=== PATIENT | female | born 1980 | race Caucasian/White ===

== ENCOUNTER 2023-01-26 23:36 | Emergency (ER) | payer OTHER ==
[~2023-01-26] VITALS: Ht 165.1 cm; Wt 81.6 kg
[2023-01-26 23:44] VITALS: BP_SYST 130; PULSE 114; RESP 26; TEMP 97.3; O2SAT 98
[2023-01-27] MEDS ORDERED: LORazepam 2 MG/ML VIAL IM ONE (00:15)
[2023-01-27] MEDS ORDERED: HALOPERIDOL LACTATE 5 MG/ML VIAL IM ONE (00:45)
[2023-01-27] MEDS ORDERED: DIPHENHYDRAMINE INJ 50 MG/ML VIAL IM ONE (01:15)
[2023-01-27 06:07] LABS: BILIRUBIN,URINE NEGATIVE (NEGATIVE); CLARITY/URINE CLEAR (CLEAR); COLOR,URINE YELLOW (YELLOW); GLUCOSE,URINE NEGATIVE (NEGATIVE); KETONES,URINE NEGATIVE (NEGATIVE); LEUKOCYTE ESTERASE ,URINE TRACE (NEGATIVE); NITRITE, URINE NEGATIVE (NEGATIVE); PH,URINE 6.5 (5.0-8.0); PROTEIN URINE NEGATIVE (NEGATIVE); UROBILINOGEN,URINE 0.2 (0.2-1.0)
[2023-01-27 06:12] LABS: BLOOD, URINE TRACE (NEGATIVE)
[2023-01-27 06:32] LABS: CANNABINOID, URINE POSITIVE (NEG <=50)
[2023-01-27 06:33] LABS: BARBITURATE, URINE NEGATIVE (NEG <=200); BENZODIAZEPINE, URINE NEGATIVE (NEG <=150); COCAINE, URINE NEGATIVE (NEG <=150); METHAMPHETAMINES SCREEN,URINE NEGATIVE (NEG <=500); URINE AMPHETAMINE NEGATIVE (NEG <=500); URINE METHADONE NEGATIVE (NEG <=200)
[2023-01-27 06:34] LABS: OPIATE, URINE NEGATIVE (NEG <=100); PHENCYCLIDINE SCREEN,URINE NEGATIVE (NEG <=25); UR TRICYCLIC ANTIDEPRESSANTS NEGATIVE (NEG <=300); URINE OXYCODONE SCREEN NEGATIVE (NEG <=100); URINE PROPOXYPHENE SCREEN NEGATIVE (NEG <=300)
[2023-01-27 06:34] LABS: BASOPHILS % (AUTO) 0.5 % (0.0-2.0); EOSINOPHILS % (AUTO) 0.4 % (0.0-4.0); HEMATOCRIT 33.9 % (36-48); LYMPHOCYTES % (AUTO) 22.8 % (20.5-51.5); MEAN CORPUSCULAR HEMOGLOBIN 29 pg (27-31); MEAN CORPUSCULAR HGB CONC 32 % (32-36); MEAN CORPUSCULAR VOLUME 90 fL (79.0-98.0); MONOCYTES # (AUTO) 0.8 K/uL (0.0-1.0); MONOCYTES % (AUTO) 9.7 % (1.7-9.3); NEUTROPHILS # (AUTO) 5.7 K/uL (1.8-7.7); NEUTROPHILS % (AUTO) 66.6 % (40.0-70.0); PLATELET COUNT (AUTO) 221 K/uL (130-430); RED BLOOD CELL COUNT(AUTO) 3.75 MIL/uL (4.2-6.2); RED CELL DISTRIBUTION WIDTH 13.3 % (9.0-15.0); WHITE BLOOD COUNT (AUTO) 8.6 K/uL (4.8-10.8)
[2023-01-27 06:47] LABS: BACTERIA,URINE FEW /HPF (None Seen)
[2023-01-27 06:56] LABS: ALANINE AMINOTRANSFERASE 27 U/L (12-78); ALBUMIN 3.6 g/dL (3.4-4.8); ANION GAP 9 (5-15); ASPARTATE AMINOTRANSFERASE 18 U/L (10-37); CALCIUM 8.4 mg/dL (8.4-11.0); CHLORIDE 108 mmol/L (98-107); CREATININE 0.76 mg/dL (0.55-1.30); GFR AFRICAN AMERICAN 106 mL/min (>90); GLUCOSE 94 mg/dL (74-106); TOTAL BILIRUBIN 0.4 mg/dL (0.0-1.0); UREA NITROGEN, BLOOD 7 mg/dL (8-21)
[2023-01-27 07:02] LABS: ACETAMINOPHEN < 1 ug/mL (1-30)
[2023-01-27 07:03] LABS: ALCOHOL, BLOOD < 3 mg/dL (<10)
[2023-01-27 09:02] LABS: CKMB RELATIVE INDEX 0.8 (0.0-2.9); CREATINE KINASE MB 2.3 ng/mL (0-3.6)
[2023-01-27 19:17] VITALS: TEMP 98.3
[2023-01-28 03:30] VITALS: BP_SYST 119; PULSE 68; RESP 17; O2SAT 98
== END 2023-01-28 13:52 ==
LOC: SED 23:36
DX: R45.1 Restlessness and agitation (principal); Z79.899 Other long term (current) drug therapy
CPT/HCPCS: 99285; 80307; 80053; 82550; 82553; 85025; 36415; 81000; 96372; J1200; J1630; J2060; G0480; G0481; G0482